=== PATIENT | male | born 1995 | race American Indian/Alaskan Native ===

== ENCOUNTER 2020-09-15 14:36 | Emergency (ER) | payer BC ==
[2020-09-15] MEDS ORDERED: ASPIRIN 325 MG TAB PO ONE (15:19)
--- NOTE | 2020-09-15 16:04 | XRay Report ---
CHEST 2 VIEWS INDICATION / CLINICAL INFORMATION: Chest pain for 3 days. COMPARISON: None available. FINDINGS: SUPPORT DEVICES: None. HEART / MEDIASTINUM: No significant abnormality. LUNGS / PLEURA: No significant pulmonary abnormality. No significant pleural effusion. No pneumothora x. ADDITIONAL FINDINGS: No significant additional findings. IMPRESSION: 1. No acute abnormality of the chest. Signer Name: Romain Clemente MD Signed: 09/15/2020 4:00 PM Workstation Name: [id number]
[2020-09-15 16:11] LABS: Basophils % (Auto) 0.7 % (0.0-1.8); Eosinophils # (Auto) 0.1 K/mm3 (0.0-0.4); Eosinophils % (Auto) 2.9 % (0.0-4.3); Hematocrit 43.8 % (35.5-45.6); Hemoglobin 14.5 gm/dl (11.8-15.2); Lymphocytes # (Auto) 2.5 K/mm3 (1.2-5.4); Lymphocytes % (Auto) 48.7 % (13.4-35.0); Mean Corpuscular HGB Conc 33 % (32-34); Mean Corpuscular Volume 87 fl (84-94); Monocytes # (Auto) 0.6 K/mm3 (0.0-0.8); Monocytes % (Auto) 11.8 % (0.0-7.3); Platelet Count 214 K/mm3 (140-440); Red Blood Count 5.02 M/mm3 (3.65-5.03); Red Cell Distribution Width 13.4 % (13.2-15.2)
[2020-09-15 16:35] LABS: Alanine Aminotransferase 23 units/L (7-56); Albumin 4.4 g/dL (3.9-5); BUN/Creatinine Ratio 9; Blood Urea Nitrogen 8 mg/dL (9-20); Calcium 9.5 mg/dL (8.4-10.2); Hemolysis Index 15
[2020-09-15] MEDS ORDERED: ALUM-MAG HYDROXIDE-SIMETHICONE 200-200-20MG/5ML ORAL LIQD 30 ML PO ONE (16:41)
[2020-09-15] MEDS ORDERED: LIDOCAINE VISCOUS 2% 15 ML ORAL LIQD PO ONE (16:41)
--- NOTE | 2020-09-15 16:47 | Emergency Department Report ---
ED Chest Pain HPI - General Chief Complaint: Chest Pain Stated Complaint: CHEST PAIN /THROAT PUI?: No Time Seen by Provider: 09/15/20 16:40 Source: patient Mode of arrival: Ambulatory Limitations: No Limitations - History of Present Illness Initial Comments: Patient is a 25-year-old male who presents emergency room with complaints of chest pain and throat pain. Patient states that his chest pain and throat pain been going on for 2 months. Patient states he had intermittent chest pain and throat pain for this long but about 24 hours ago it came back stronger. Patient states he is already seen a precipitator operator and he was diagnosed with myocarditis. Patient states the precipitator operator put him on Entresto and another other heart medications. Patient states the chest pain is in his left chest. Patient dates is nonradiating. Patient states of moderate pain. Patient states the chest pain is associated with shortness of breath and throat pain. Patient states before he developed chest pain 2 months ago he had the throat pain. Patient states the throat pain feels like there is something stuck in his throat. Patient states did feel like his throat is swollen. Patient denies abdominal pain. Patient denies vomiting. Patient states has had bouts of nausea. Patient dates she is also had bouts of burping and feeling bloated. Patient denies recent travel. Patient denies recent international travel. Patient denies exposure to the novel coronavirus. Patient denies sick contacts. Patient denies fever and chills. Patient denies cough. Patient denies diarrhea. Patient denies coming in contact with anybody with symptoms of the novel coronavirus. MD Complaint: chest pain -: Sudden Onset: during rest Pain Location: left chest Pain Radiation: none Severity: moderate Severity scale (0 -10): 6 Quality: sharp Consistency: constant Improves With: rest Worsens With: exertion, movement re: nausea, dyspnea. denies: vomting, diaphoresis, sense of impending doom Other Symptoms: acid taste in mouth, burping. denies: cough, fever, syncope, rash, leg swelling, palpitations Treatments Prior to Arrival: aspirin Aspirin use within the Past 7 Days: (1) Yes - Related Data On Oral Contraceptives: No Previous Rx's Medication Instructions Recorded Last Taken Type HYDROcodone/APAP 7.5-325 [[place] 1 each PO Q6HR PRN #14 tablet 07/16/13 Unknown Rx 7.5-325 mg TAB] Ibuprofen [Motrin] 800 mg PO Q8H PRN #20 tablet 07/16/13 Unknown Rx cephALEXin [Keflex] 500 mg PO BID #20 capsule 07/16/13 Unknown Rx Fluticasone Furoate [Flonase 2 spray NS DAILY #1 spray.susp 09/15/20 Unknown Rx Sensimist] Pantoprazole [Protonix] 40 mg PO QDAY 30 Days #30 tablet 09/15/20 Unknown Rx Allergies Allergy/AdvReac Type Severity Reaction Status Date / Time No Known Allergies Allergy Verified 07/16/13 14:16 Heart Score - HEART Score History: Slightly suspicious EKG: Normal Age: < 45 Risk factors: No known risk factors Troponin: < normal limit HEART Score: 0 - EKG Read Time Time EKG Completed: 15:15 EKG Read Time: 15:20 ED Review of Systems ROS: Stated complaint: CHEST PAIN /THROAT Other details as noted in HPI Constitutional: denies: chills, fever Eyes: denies: eye pain, eye discharge, vision change ENT: as per HPI, throat pain. denies: ear pain Respiratory: denies: cough, shortness of breath, wheezing Cardiovascular: as per HPI, chest pain. denies: palpitations Endocrine: no symptoms reported Gastrointestinal: as per HPI, nausea. denies: abdominal pain, diarrhea Genitourinary: denies: urgency, dysuria Musculoskeletal: denies: back pain, joint swelling, arthralgia Skin: denies: rash, lesions Neurological: denies: headache, weakness, paresthesias Psychiatric: denies: anxiety, depression Hematological/Lymphatic: denies: easy bleeding, easy bruising ED Past Medical Hx - Past Medical History Previous Medical History?: Yes Additional medical history: Myocarditis - Surgical History Past Surgical History?: No - Family History Family history: no significant - Social History Smoking Status: Never Smoker Substance Use Type: None - Medications Home Medications: Home Medications Medication Instructions Recorded Confirmed Last Taken Type HYDROcodone/APAP 7.5-325 [[place] 1 each PO Q6HR PRN #14 tablet 07/16/13 Unknown Rx 7.5-325 mg TAB] Ibuprofen [Motrin] 800 mg PO Q8H PRN #20 tablet 07/16/13 Unknown Rx cephALEXin [Keflex] 500 mg PO BID #20 capsule 07/16/13 Unknown Rx Fluticasone Furoate [Flonase 2 spray NS DAILY #1 spray.susp 09/15/20 Unknown Rx Sensimist] Pantoprazole [Protonix] 40 mg PO QDAY 30 Days #30 tablet 09/15/20 Unknown Rx ED Physical Exam - General Limitations: No Limitations General appearance: alert, in no apparent distress - Head Head exam: Present: atraumatic, normocephalic - Eye Eye exam: Present: normal appearance - ENT ENT exam: Present: mucous membranes moist, other (Enlarged nasal turbinates with a clear mucus coating.) - Neck Neck exam: Present: normal inspection - Respiratory Respiratory exam: Present: normal lung sounds bilaterally, chest wall tenderness. Absent: respiratory distress, wheezes, rales - Cardiovascular Cardiovascular Exam: Present: regular rate, normal rhythm. Absent: systolic murmur, diastolic murmur, rubs, gallop - GI/Abdominal GI/Abdominal exam: Present: soft, normal bowel sounds. Absent: distended, tenderness, guarding - Rectal Rectal exam: Present: deferred - Extremities Exam Extremities exam: Present: normal inspection - Back Exam Back exam: Present: normal inspection - Neurological Exam Neurological exam: Present: alert, oriented X3 - Psychiatric Psychiatric exam: Present: normal affect, normal mood - Skin Skin exam: Present: warm, dry, intact, normal color. Absent: rash ED Course Vital Signs 09/15/20 09/15/20 15:11 16:20 Temperature 98.9 F Pulse Rate 69 72 Respiratory 18 13 Rate Blood Pressure 120/78 O2 Sat by Pulse 100 100 Oximetry - Reevaluation(s) Reevaluation #1: Patient states his throat and chest pain have resolved. Patient was given a GI cocktail. Patient denies nausea vomiting. Patient denies cough. Patient denies chest pain and shortness of breath. I discussed all results and clinical findings with patient. I discussed plan of care with patient. Patient agrees with plan of care. Patient is stable for discharge. Patient will be discharged home. Patient given discharge in structions. Patient voiced understanding of discharge instructions. 09/15/20 18:56 MICHAEL score - Michael Score Age > 65: (0) No Aspirin use within the Past 7 Days: (1) Yes 3 or more CAD Risk Factors: (0) No 2 or more Angina events in past 24 hrs: (0) No Known CAD with more than 50% Stenosis: (0) No Elevated Cardiac Markers: (0) No ST Deviation Greater than 0.5mm: (0) No MICHAEL Score: 1 ED Medical Decision Making - Lab Data Result diagrams: 09/15/20 15:31 09/15/20 15:31 - EKG Data -: EKG Interpreted by Me EKG shows normal: sinus rhythm, axis, intervals, QRS complexes, ST-T waves Rate: normal - Radiology Data Radiology results: report reviewed, image reviewed interpreted by me: Chest x-ray: No pneumonia, no pneumothorax, no foreign body, no osseous findings, no acute findings CHEST 2 VIEWS INDICATION / CLINICAL INFORMATION: Chest pain for 3 days. COMPARISON: None available. FINDINGS: SUPPORT DEVICES: None. HEART / MEDIASTINUM: No significant abnormality. LUNGS / PLEURA: No significant pulmonary abnormality. No significant pleural effusion. No pneumothorax. ADDITIONAL FINDINGS: No significant additional findings. IMPRESSION: 1. No acute abnormality of the chest. - Medical Decision Making Patient is a 25-year-old male who presents emergency room with complaints of chest pain and throat pain. Patient states his throat pain has been going on for 2 months. Patient states that he is already seen his primary and a precipitator operator. Patient states he was diagnosed with myocarditis and being treated with meds. Patient states he sees a precipitator operator regularly. Patient states he has appoint with his primary care tomorrow. Patient states he has not seen a wood room hand. Patient had exam done shows enlarged nasal turbinates with a clear mucus on the nasal turbinates and mucoid layer on his oropharynx consistent with acid reflux and allergic rhinitis. Patient given a GI cocktail and his symptoms resolved. Patient was discharged from the ER asymptomatic. Patient had labs done which were essentially unremarkable. Patient had 2 sets of cardiac enzymes and both were negative. Patient's EKG was unremarkable and showed a normal sinus rhythm with normal STs. I personally reviewed the EKG. Patient had a chest x-ray which was negative for acute findi ng. I personally reviewed the chest x-ray. Patient symptoms are consistent with acid reflux and allergic rhinitis. Patient responded well to GI cocktail. Patient discharged home with Protonix orally. Patient also given Flonase. Patient given referral for GI and ENT. Patient instructed to follow-up with his primary care and precipitator operator. Patient is stable for discharge. Patient discharged home. Patient can be followed as an outpatient. Patient does not require any further emergency medical services or inpatient services. - Differential Diagnosis Chest pain, GERD, esophagitis, allergies, Critical care attestation.: If time is entered above; I have spent that time in minutes in the direct care of this critically ill patient, excluding procedure time. ED Disposition Clinical Impression: Throat pain, Globus sensation Chest pain Qualifiers: Chest pain type: unspecified Qualified Code(s): R07.9 - Chest pain, unspecified GERD with esophagitis Qualifiers: Esophagitis bleeding: without hemorrhage Qualified Code(s): K21.00 - Gastro-e sophageal reflux disease with esophagitis, without bleeding Allergic rhinitis Qualifiers: Allergic rhinitis trigger: unspecified Allergic rhinitis seasonality: unspecified Qualified Code(s): J30.9 - Allergic rhinitis, unspecified Disposition: DC-01 TO HOME OR SELFCARE Is pt being admited?: No Does the pt Need Aspirin: No Condition: Stable Instructions: Nonspecific Chest Pain, Adult, Heartburn, [id number], Chest Wall Pain, [id number], Allergic Rhinitis, Adult, [id number], Sore Throat Additional Instructions: Patient to follow-up with primary care in 2 to 3 days. Patient to follow-up with precipitator operator, ENT and wood room hand in 2 to 3 days. Patient to rest. Patient to increase water. Patient to avoid strenuous exercise or heavy lifting until cleared by precipitator operator and primary care. Patient to take Tylenol as needed for pain. Patient to take meds as directed. Patient to return to the ER if condition worsens, changes or new symptoms arise. Prescriptions: Fluticasone Furoate [Flonase Sensimist] 2 spray NS DAILY #1 spray.susp Pantoprazole [Protonix] 40 mg PO QDAY 30 Days #30 tablet Referrals: DAVE SAMANIEGO MD [Primary Care Provider] - 2-3 Days KRISTEN FELDMAN MD [Staff Physician] - 2-3 Days DELL YEPEZ MD [Staff Physician] - 2-3 Days RIMA GONZALEZ MD [Staff Physician] - 2-3 Days Time of Disposition: 19:04
[2020-09-15 19:12] VITALS: BP 123/76
--- NOTE | 2020-09-16 09:15 | Electrocardiograph Report ---
[facility] Test Date: 2020-09-15 Test Time: 15:15:10 Pat Name: SAMANTA BARNHART Department: Room: Gender: M Insurance Claim Representative: VIGNESH : 1995 Requested By: HOLLIS PICHARDO III Order Number: [id number] Reading MD: Bartolo Lui Measurements Intervals [place] Rate: 65 P: 47 HI: 171 QRS: -3 QRSD: 100 T: 27 QT: 356 QTc: 371 Interpretive Statements Sinus rhythm nonspecific st-t No previous ECG available for comparison Electronically Signed On 09-16-2020 9:14:55 EDT by Bartolo Lui
== END 2020-09-15 19:19 | disposition home or self-care (01) ==
LOC: ED 14:36
DX: K21.00 Gastro-esophageal reflux disease with esophagitis, without bleeding (principal); J30.9 Allergic rhinitis, unspecified; F45.8 Other somatoform disorders; R07.89 Other chest pain; R07.0 Pain in throat; Z79.1 Long term (current) use of non-steroidal anti-inflammatories (NSAID); Z79.899 Other long term (current) drug therapy
CPT/HCPCS: 36415; 71046; 80053; 84484; 85025; 93005